=== PATIENT | female | born 1945 | race Caucasian/White ===

== ENCOUNTER 2018-03-29 15:36 | Emergency (ER) | payer MEDICARE ==
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
[2018-03-29] MEDS ORDERED: LIDOCAINE 1% INJ-PF (10 MG/ML) 30 ML SDV INJ ONE (16:08)
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
[2018-03-29 18:39] VITALS: BP 184/80
== END 2018-03-29 18:00 | disposition home or self-care (01) ==
LOC: ER 15:36
PROC: 0HQLXZZ Repair Left Lower Leg Skin, External Approach (ICD-10-PCS; principal; 2018-03-29)
PROC: 0HQ1XZZ Repair Face Skin, External Approach (ICD-10-PCS; 2018-03-29)
DX: S01.81XA Laceration without foreign body of other part of head, initial encounter (principal); S81.812A Laceration without foreign body, left lower leg, initial encounter; S06.0X0A Concussion without loss of consciousness, initial encounter; V94.31XA Injury to rider of (inflatable) recreational watercraft being pulled behind other watercraft, initial encounter; Y92.838 Other recreation area as the place of occurrence of the external cause
CPT/HCPCS: 99284; 73590; 70450; 12002; 12011; J3490